=== PATIENT | male | born 1970 | race American Indian/Alaskan Native ===

== ENCOUNTER 2023-03-24 12:04 | Emergency (ER) | payer SELFPAY ==
[2023-03-24] MEDS ORDERED: Sodium Chloride 0.9% 10 ML Syringe FLUSH PRN (12:54)
[2023-03-24] MEDS ORDERED: HYDROmorphone 1 MG/ML Syringe IVPUSH STA (12:54)
[2023-03-24] MEDS ORDERED: Ondansetron 4 MG/2 ML SDV IVPUSH ONE (12:54)
[2023-03-24] MEDS ORDERED: Lidocaine/EPINEPHrine/Tetracaine Soln 1 ML TOP ONE (13:09)
[2023-03-24] MEDS ORDERED: Midazolam 1 MG/ML 2 ML SDV IVPUSH ONE (13:20)
[2023-03-24] MEDS ORDERED: Diphtheria,Pertussis(Acell),Tetanus Vaccine 0.5 ML Syringe IM ONE (13:23)
[2023-03-24 13:42] LABS: BASOPHILS ABSOLUTE AUTO 0.01 K/mm3 (0.01-0.08); BASOPHILS PERCENT AUTO 0.1 % (0.1-1.2); EOSINOPHILS ABSOLUTE AUTO 0.11 K/mm3 (0.04-0.54); EOSINOPHILS PERCENT AUTO 1.1 (0.8-7.0); HEMATOCRIT 39.5 % (40.1-51.0); HEMOGLOBIN 13.6 gm/dl (13.7-17.5); IMMATURE GRAN ABSOLUTE AUTO 0.05 K/mm3 (0.00-0.10); IMMATURE GRAN PERCENT AUTO 0.5 % (<=1.0); LYMPHOCYTES ABSOLUTE AUTO 0.98 K/mm3 (1.32-3.57); LYMPHOCYTES PERCENT AUTO 9.6 % (21.8-53.1); MEAN CORPUSCULAR HEMOGLOBIN 30.8 pg (25.7-32.2); MEAN CORPUSCULAR HGB CONC 34.4 g/dl (32.2-35.5); MEAN CORPUSCULAR VOLUME 89.6 fl (79.0-92.2); MEAN PLATELET VOLUME 9.4 fl (9.4-12.3); MONOCYTES ABSOLUTE AUTO 0.71 K/mm3 (0.30-0.82); MONOCYTES PERCENT AUTO 6.9 % (5.3-12.2); NEUTROPHILS ABSOLUTE AUTO 8.37 K/mm3 (1.78-5.38); NEUTROPHILS PERCENT AUTO 81.8 % (34.0-67.9); PLATELET COUNT,PLT 211 K/mm3 (163-337); RED BLOOD CELL COUNT 4.41 M/mm3 (4.63-6.08); WHITE BLOOD CELL COUNT,WBC 10.23 K/mm3 (4.23-9.07)
[2023-03-24 14:07] LABS: A/G RATIO 0.8 (1-2); ALBUMIN 2.9 g/dl (3.4-5.0); ANION GAP 10.1 (5-15); BILIRUBIN TOTAL 0.9 mg/dL (0.2-1.0); BUN/CREATININE RATIO 12.2 (14-18); C-REACTIVE PROTEIN 11.6 mg/dL (<1.0); CALCIUM 8.5 mg/dL (8.5-10.1); CREATININE 0.9 mg/dL (0.7-1.3); EST CRCL DRUG DOSING (CG) 102.22 mL/min; POTASSIUM,K 4.1 mEq/L (3.5-5.1); PROTEIN TOTAL,TP 6.6 g/dl (6.4-8.2)
== END 2023-03-24 14:31 ==
LOC: JD.ED 12:04
DX: S30.852A Superficial foreign body of penis, initial encounter (principal); N48.5 Ulcer of penis; Z23 Encounter for immunization; W19.XXXA Unspecified fall, initial encounter
CPT/HCPCS: 36415; 80053; 85025; 86140; 90471; 90715; 96374; 96375; 99284; J1170; J2250; J2405; J3490